=== PATIENT | male | born 1965 | race Asian ===

== ENCOUNTER 2019-05-15 09:51 | Inpatient (IN) | payer OTHER ==
[2019-05-15 10:20] VITALS: BMI 23.4
--- NOTE | 2019-05-15 11:18 | HP ---
CIWA Score Nausea/Vomitin Muscle Tremors: 2 Anxiety: 3 Agitation: 3 Paroxysmal Sweats: No Perspiration Orientation: 0-Oriented Tacttile Disturbances: 1-Very Mild Itch/Numbness Auditory Disturbances: 0-None Visual Disturbances: 0-None Headache: 2-Mild CIWA-Ar Total Score: 13 - Admission Criteria OASAS Guidelines: Admission for Medically Managed Detox: Requires at least one of the followin. CIWA greater than 12 2. Seizures within the past 24 hours 3. Delirium tremens within the past 24 hours 4. Hallucinations within the past 24 hours 5. Acute intervention needed for co occurring medical disorder 6. Acute intervention needed for co occurring psychiatric disorder 7. Severe withdrawal that cannot be handled at a lower level of care (continued vomiting, continued diarrhea, abnormal vital signs) requiring intravenous medication and/or fluids 8. Admitting History and Physical - Admission Chief Complaint: i need help to stop drinking alcohol History of Present Illness: this 53 years old male with alcohol dependence seeking detox,withdrawal symptom, first time in this facility last detox in 10/10 ,did not recall the facility lactose intolerance weight loss nicotine dependence depression,non compliance chronic low back pain l1 to l5 fx of right wrist with deformity in 2014 longest sobriety 1 year plan for rehab after detox History Source: Patient Limitations to Obtaining History: No Limitations - Past Medical History Cardiovascular: Yes: Other (hypercholesterol) Gastrointestinal: Yes: GERD Musculoskeletal: Yes: Chronic low back pain, Other (herniated disc l1 to l5) Additional Past Medical History: fx of right wrist in 2014 with deformity - Smoking History Smoking history: Current every day smoker Have you smoked in the past 12 months: Yes Aproximately how many cigarettes per day: 20 - Alcohol/Substance Use Hx Alcohol Use: Yes - Social History Usual Living Arrangement: Yes: Other (homeless) ADL: Support Services 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 unemployed,deformity of right wrist,chronic low pack,nicotine dependence Admission ROS [facility] - HPI Chief Complaint: i need help to stop drinking alcohol Allergies/Adverse Reactions: Allergies Allergy/AdvReac Type Severity Reaction Status Date / Time lactose Allergy Verified 05/15/19 10:28 History of Present Illness: this 53 years old male with alcohol dependence,seeking detox,withdrawal symptom last detox 2018 unknown facility chronic low back pain herniated lumbar disc deformity of right wrist ,post fx in 2014 homeless depression longest sobriety 1 year plan for rehab after detox weight loss - Ebola screening Have you traveled outside of the country in the last 21 days: No (N) Have you had contact with anyone from an Ebola affected area: No Do you have a fever: No - Review of Systems Constitutional: Loss of Appetite, Malaise, Night Sweats, Changes in sleep, Weakness, Unintentional Wgt. Loss EENT: reports: Nose Congestion Respiratory: reports: No Symptoms reported Cardiac: reports: No Symptoms Reported GI: reports: Nausea, Poor Appetite, Abdominal cramping : reports: No Symptoms Reported Musculoskeletal: reports: Back Pain, Muscle Pain, Other (chronic low back pain) Integumentary: reports: Dryness Neuro: reports: Headache, Tremors Endocrine: reports: No Symptoms Reported Hematology: reports: No Symptoms Reported Psychiatric: reports: No Sypmtoms Reported, Judgement Intact, Mood/Affect Appropiate, Orientated x3, Depressed Patient History - Patient Medical History Hx Anemia: Yes (no med) Hx Asthma: No Hx Chronic Obstructive Pulmonary Disease (COPD): No Hx Cancer: No Hx Cardiac Disorders: No Hx Congestive Heart Failure: No Hx Hypertension: No Hx Hypercholesterolemia: No HX Cerebrovascular Accident: No Hx Seizures: No Hx Dementia: No Hx Diabetes: No Hx Gastrointestinal Disorders: Yes (gerd) Hx Liver Disease: No Hx Genitourinary Disorders: No Hx Sexually Transmitted Disorders: No Hx Renal Disease (ESRD): No Hx Thyroid Disease: No Hx Human Immunodeficiency Virus (HIV): No (last 2018) Hx Hepatitis C: No Hx Depression: Yes (no med) Hx Suicide Attempt: No Hx Bipolar Disorder: No Hx Schizophrenia: No Other Medical History: no suicidal,no homicidal - Patient Surgical History Past Surgical History: No - PPD History Previous Implant?: Yes Documented Results: Positive w/o proof Implanted On Prior [facility] Admission?: No PPD to be Administered?: No - Smoking Cessation Smoking history: Current every day smoker Have you smoked in the past 12 months: Yes Aproximately how many cigarettes per day: 20 Hx Chewing Tobacco Use: No Initiated information on smoking cessation: Yes 'Breaking Loose' booklet given: 05/15/19 - Substance & Tx. History Hx Alcohol Use: Yes Hx Substance Use: No Substance Use Type: Alcohol Hx Substance Use Treatment: Yes (2018 unknown facility) - Substances abused Alcohol Substance route: Oral Frequency: Daily Amount used: 1 liter of whiskey Age of first use: 34 Date of last use: 05/14/19 Admission Physical Exam [facility] - Vital Signs Vital Signs: Vital Signs - 24 hr 05/15/19 05/15/19 10:08 10:57 Temperature 97.8 F 97.8 F Pulse Rate 83 83 Respiratory 20 20 Rate Blood Pressure 116/67 116/67 - Physical General Appearance: Yes: Moderate Distress, Tremorous, Irritable, Sweating, Anxious HEENTM: Yes: Normal ENT Inspection, FRANCO, Pharynx Normal Respiratory: Yes: Lungs Clear, Normal Breath Sounds, No Respiratory Distress Neck: Yes: Within Normal Limits, Supple, Trachea in good position Breast: Yes: Within Normal Limits Cardiology: Yes: Within Normal Limits, Regular Rate, S1, S2 Abdominal: Yes: Within Normal Limits, Normal Bowel Sounds, Non Tender, Flat, Soft Genitourinary: Yes: Within Normal Limits Back: Yes: Muscle Spasm (herniated lumbar disc l1 to l5) Musculoskeletal: Yes: Back pain, Muscle Pain Extremities: Yes: Tremors (deformity of right wrist) Neurological: Yes: electrical troubleshooter II-XII NML intact, Alert, Motor Strength 5/5 Integumentary: Yes: Dry Lymphatic: Yes: Within Normal Limits - Diagnostic (1) Alcohol dependence with uncomplicated withdrawal Current Visit: Yes Status: Acute (2) Syncope Current Visit: Yes Status: Acute (3) Chronic low back pain Current Visit: Yes Status: Acute (4) Deformity of right wrist Current Visit: Yes Status: Acute (5) Weight loss Current Visit: Yes Status: Acute (6) Depression Current Visit: Yes Status: Acute Cleared for Admission [facility] - Detox or Rehab [facility] Level of Care: Medically Managed Detox Regimen/Protocol: Librium Breathalyzer - Breathalyzer Breathalyzer: 0 Urine Drug Screen - Test Device Lot number: [id number] Expiration date: 12/22/20 - Control Is test valid?: Yes - Results Drug screen NEGATIVE: No Urine drug screen results: MOOKIE-Cocaine Inpatient Rehab Admission - Rehab Decision to Admit Inpatient rehab admission?: No
[2019-05-15] MEDS ORDERED: hydrOXYzine PAMOATE 25 MG CAPSULE (FP) PO PRN (11:46)
[2019-05-15] MEDS ORDERED: BISMUTH SUBSALICYLATE 524 MG/30 ML UD PO PRN (11:46)
[2019-05-15] MEDS ORDERED: MENTHOL/PHENOL 1 EACH UD MM PRN (11:46)
[2019-05-15] MEDS ORDERED: ACETAMINOPHEN 325 MG TABLET (FP) PO PRN ×2 (11:46)
[2019-05-15] MEDS ORDERED: MAGNESIUM CITRATE 300 ML BOTTLE PO PRN (11:46)
[2019-05-15] MEDS: NICOTINE 21 MG/24 HOURS TOPICAL PATCH TD SCH (13:08)
[2019-05-15] MEDS: chlordiazePOXIDE HCL 25 MG CAPSULE PO PRN (13:09)
[2019-05-15] MEDS: FAMOTIDINE 20 MG TABLET PO SCH (13:09)
[2019-05-15] MEDS: MAG HYDROX/AL HYDROX/SIMETH 30 ML UNIT-DOSE CUP PO PRN (17:07)
[2019-05-15] MEDS: IBUPROFEN 400 MG TABLET (FP) PO PRN (17:27)
[2019-05-15] MEDS: chlordiazePOXIDE HCL 25 MG CAPSULE PO SCH ×2 (17:28→22:15)
--- NOTE | 2019-05-15 18:43 | EKG ---
Test Reason : Blood Pressure : / mmHG Vent. Rate : 068 BPM Atrial Rate : 068 BPM P-R Int : 152 ms QRS Dur : 078 ms QT Int : 386 ms P-R-T Axes : 070 070 048 degrees QTc Int : 410 ms NORMAL SINUS RHYTHM POSSIBLE LEFT ATRIAL ENLARGEMENT BORDERLINE ECG NO PREVIOUS ECGS AVAILABLE Confirmed by ANTONIO MORALES MD ([id number]) on 05/15/2019 6:43:16 PM Referred By: OSCAR Confirmed By:ANTONIO MORALES MD
[2019-05-15] MEDS: NICOTINE POLACRILEX 2 MG GUM BUC PRN (20:50)
[2019-05-15] MEDS: THIAMINE HCL 100 MG TABLET (FP) PO SCH (22:15)
[2019-05-15] MEDS: MELATONIN 5 MG TABLETS PO PRN (22:16)
[2019-05-16] MEDS: chlordiazePOXIDE HCL 25 MG CAPSULE PO SCH ×4 (06:13→22:21)
[2019-05-16] MEDS: chlordiazePOXIDE HCL 25 MG CAPSULE PO PRN (06:41)
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
[2019-05-16] MEDS: hydrOXYzine PAMOATE 50 MG CAPSULE (FP) PO PRN ×3 (08:38→20:44)
--- NOTE | 2019-05-16 09:56 | PN ---
S CIWA - CIWA Score Nausea/Vomitin-Mild Nausea/No Vomiting Muscle Tremors: 3 Anxiety: 2 Agitation: 1-Slight > Activity Paroxysmal Sweats: 2 Orientation: 0-Oriented Tacttile Disturbances: 1-Very Mild Itch/Numbness Auditory Disturbances: 1-Very Mild Visual Disturbances: 0-None Headache: 1-Very Mild CIWA-Ar Total Score: 12 BHS Progress Note (SOAP) Subjective: 53 years old male admitted 05/15/19 for alcohol withdrawal sx management treating with librium detox regimen ate breakfast seen by psychiatrist feeling ok today discuss aftercare with staff Objective: 05/16/19 09:55 Vital Signs Temperature 97.5 F L 05/16/19 09:25 Pulse Rate 68 05/16/19 09:25 Respiratory Rate 18 05/16/19 09:25 Blood Pressure 106/66 05/16/19 09:25 O2 Sat by Pulse Oximetry (%) 05/16/19 09:55 lab pending Assessment: 05/16/19 09:55 alcohol withdrawal Plan: librium regimen
[2019-05-16 10:39] LABS: HEMATOCRIT 40.8 % (35.4-49); HEMOGLOBIN 13.3 GM/dL (11.7-16.9); MCH 25.8 pg (25.7-33.7); MCHC 32.5 g/dl (32.0-35.9); MEAN CELL VOLUME 79.3 fl (80-96); MEAN PLT VOLUME 9.1 fl (7.5-11.1); PLATELET COUNT 208 K/MM3 (134-434); RBC 5.14 M/mm3 (4.00-5.60); RDW 13.9 % (11.9-15.9); WHITE BLOOD COUNT 4.3 K/mm3 (4.0-10.0)
[2019-05-16] MEDS: PRENATAL VITAMINS W/ FOLIC ACID TABLET (FP) PO SCH (10:41)
[2019-05-16] MEDS: FENOFIBRIC ACID 45 MG CAP PO SCH (10:41)
[2019-05-16] MEDS: NICOTINE 21 MG/24 HOURS TOPICAL PATCH TD SCH (10:41)
[2019-05-16] MEDS: FAMOTIDINE 20 MG TABLET PO SCH (10:41)
[2019-05-16 10:43] LABS: ALBUMIN 3.7 g/dl (3.4-5.0); BILIRUBIN,TOTAL 0.3 mg/dL (0.2-1); BLOOD UREA NITROGEN 21.7 mg/dL (7-18); CALCIUM 9.3 mg/dL (8.5-10.1); POTASSIUM 4.9 mmol/L (3.5-5.1); TOT PROT 7.2 g/dl (6.4-8.2)
[2019-05-16] MEDS: NICOTINE POLACRILEX 2 MG GUM BUC PRN (10:43)
[2019-05-16] MEDS: MAG HYDROX/AL HYDROX/SIMETH 30 ML UNIT-DOSE CUP PO PRN ×2 (11:59→20:44)
[2019-05-16 16:25] LABS: URINE APPEARANCE CLEAR; URINE BILIRUBIN NEGATIVE (NEGATIVE); URINE COLOR YELLOW; URINE GLUCOSE (UA) NEGATIVE (NEGATIVE); URINE KETONE NEGATIVE (NEGATIVE); URINE LEUK ESTERASE NEGATIVE (NEGATIVE); URINE NITRITE NEGATIVE (NEGATIVE); URINE PROTEIN NEGATIVE (NEGATIVE); URINE UROBILINOGEN 0.2 mg/dL (0.2-1.0)
[2019-05-16] MEDS: IBUPROFEN 400 MG TABLET (FP) PO PRN (20:45)
[2019-05-16] MEDS: THIAMINE HCL 100 MG TABLET (FP) PO SCH (22:21)
[2019-05-16] MEDS: MELATONIN 5 MG TABLETS PO PRN (22:22)
[2019-05-17] MEDS: MAG HYDROX/AL HYDROX/SIMETH 30 ML UNIT-DOSE CUP PO PRN ×2 (02:01→14:43)
[2019-05-17] MEDS: hydrOXYzine PAMOATE 50 MG CAPSULE (FP) PO PRN ×3 (02:01→22:05)
[2019-05-17] MEDS: chlordiazePOXIDE HCL 25 MG CAPSULE PO SCH ×4 (05:19→22:04)
--- NOTE | 2019-05-17 09:58 | PN ---
S CIWA - CIWA Score Nausea/Vomitin-Mild Nausea/No Vomiting Muscle Tremors: 2 Anxiety: 2 Agitation: 2 Paroxysmal Sweats: 1-Minimal Palms Moist Orientation: 0-Oriented Tacttile Disturbances: 1-Very Mild Itch/Numbness Auditory Disturbances: 0-None Visual Disturbances: 0-None Headache: 0-None Present CIWA-Ar Total Score: 9 BHS Progress Note (SOAP) Subjective: 53 years old male admitted on 05/15/19 for alcohol withdrawal sx management treating with librium detox regimen c/o long history of eczema treated with hydrocortison cream order aveeno soap and hydrocortison cream Objective: 05/17/19 09:56 Vital Signs Temperature 97 F L 05/17/19 09:04 Pulse Rate 79 05/17/19 09:04 Respiratory Rate 18 05/17/19 09:04 Blood Pressure 112/61 05/17/19 09:04 O2 Sat by Pulse Oximetry (%) Laboratory Last Values WBC 4.3 K/mm3 (4.0-10.0) 05/16/19 07:45 RBC 5.14 M/mm3 (4.00-5.60) 05/16/19 07:45 Hgb 13.3 GM/dL (11.7-16.9) 05/16/19 07:45 Hct 40.8 % (35.4-49) 05/16/19 07:45 MCV 79.3 fl (80-96) L 05/16/19 07:45 MCH 25.8 pg (25.7-33.7) 05/16/19 07:45 MCHC 32.5 g/dl (32.0-35.9) 05/16/19 07:45 RDW 13.9 % (11.9-15.9) 05/16/19 07:45 Plt Count 208 K/MM3 (134-434) 05/16/19 07:45 MPV 9.1 fl (7.5-11.1) 05/16/19 07:45 Sodium 140 mmol/L (136-145) 05/16/19 07:45 Potassium 4.9 mmol/L (3.5-5.1) 05/16/19 07:45 Chloride 105 mmol/L (98-107) 05/16/19 07:45 Carbon Dioxide 30 mmol/L (21-32) 05/16/19 07:45 Anion Gap 5 MMOL/L (8-16) L 05/16/19 07:45 BUN 21.7 mg/dL (7-18) H 05/16/19 07:45 Creatinine 1.0 mg/dL (0.55-1.3) 05/16/19 07:45 Est GFR (CKD-EPI)AfAm 98.46 05/16/19 07:45 Est GFR (CKD-EPI)NonAf 84.95 05/16/19 07:45 Random Glucose 94 mg/dL (74-106) 05/16/19 07:45 Calcium 9.3 mg/dL (8.5-10.1) 05/16/19 07:45 Total Bilirubin 0.3 mg/dL (0.2-1) 05/16/19 07:45 AST 22 U/L (15-37) 05/16/19 07:45 ALT 47 U/L (13-61) 05/16/19 07:45 Alkaline Phosphatase 66 U/L (45-117) 05/16/19 07:45 Total Protein 7.2 g/dl (6.4-8.2) 05/16/19 07:45 Albumin 3.7 g/dl (3.4-5.0) 05/16/19 07:45 Triglycerides 243 mg/dL (0-150) H 05/16/19 07:45 Cholesterol 240 mg/dL (50-200) H 05/16/19 07:45 Total LDL Cholesterol 145 mg/dL (5-100) H 05/16/19 07:45 HDL Cholesterol 53 mg/dL (40-60) 05/16/19 07:45 Urine Color Yellow 05/16/19 15:57 Urine Appearance Clear 05/16/19 15:57 Urine pH 6.0 (5.0-8.0) 05/16/19 15:57 Ur Specific [place] 1.017 (1.010-1.035) 05/16/19 15:57 Urine Protein Negative (NEGATIVE) 05/16/19 15:57 Urine Glucose (UA) Negative (NEGATIVE) 05/16/19 15:57 Urine Ketones Negative (NEGATIVE) 05/16/19 15:57 Urine Blood Negative (NEGATIVE) 05/16/19 15:57 Urine Nitrite Negative (NEGATIVE) 05/16/19 15:57 Urine Bilirubin Negative (NEGATIVE) 05/16/19 15:57 Urine Urobilinogen 0.2 mg/dL (0.2-1.0) 05/16/19 15:57 Ur Leukocyte Esterase Negative (NEGATIVE) 05/16/19 15:57 RPR Titer Nonreactive (NONREACTIVE) 05/16/19 07:45 lab noted cholesterol elevation encourage the patient repeat cholesterol penal three months after fenofibrate 05/17/19 10:04 Assessment: 05/17/19 10:05 alcohol withdrawal Plan: librium regimen
[2019-05-17] MEDS: NICOTINE 21 MG/24 HOURS TOPICAL PATCH TD SCH (10:36)
[2019-05-17] MEDS: FENOFIBRIC ACID 45 MG CAP PO SCH (10:36)
[2019-05-17] MEDS: PRENATAL VITAMINS W/ FOLIC ACID TABLET (FP) PO SCH (10:36)
[2019-05-17] MEDS: FAMOTIDINE 20 MG TABLET PO SCH (10:36)
[2019-05-17] MEDS: NICOTINE POLACRILEX 2 MG GUM BUC PRN ×2 (10:36→21:22)
[2019-05-17] MEDS: HYDROCORTISONE 1% TOPICAL CREAM 30 GM TUBE TP SCH ×4 (11:32→22:04)
[2019-05-17] MEDS: COLLOIDAL OATMEAL 1 BAR EACH TP PRN (14:39)
[2019-05-17] MEDS: IBUPROFEN 400 MG TABLET (FP) PO PRN ×2 (16:56→22:56)
[2019-05-17] MEDS: LIDOCAINE 5% TOPICAL PATCH TP SCH (18:32)
[2019-05-17] MEDS: LIDOCAINE PATCH REMOVAL MC SCH (22:04)
[2019-05-17] MEDS: THIAMINE HCL 100 MG TABLET (FP) PO SCH (22:04)
[2019-05-18] MEDS ORDERED: chlordiazePOXIDE HCL 10 MG CAPSULE PO PRN
[2019-05-18] MEDS: MAG HYDROX/AL HYDROX/SIMETH 30 ML UNIT-DOSE CUP PO PRN ×3 (01:38→18:49)
[2019-05-18] MEDS: hydrOXYzine PAMOATE 50 MG CAPSULE (FP) PO PRN ×5 (01:39→22:48)
[2019-05-18] MEDS: chlordiazePOXIDE HCL 10 MG CAPSULE PO SCH ×4 (05:49→22:05)
[2019-05-18] MEDS: PRENATAL VITAMINS W/ FOLIC ACID TABLET (FP) PO SCH (09:11)
[2019-05-18] MEDS: FAMOTIDINE 20 MG TABLET PO SCH (09:11)
[2019-05-18] MEDS: HYDROCORTISONE 1% TOPICAL CREAM 30 GM TUBE TP SCH ×4 (09:11→21:58)
[2019-05-18] MEDS: FENOFIBRIC ACID 45 MG CAP PO SCH (09:11)
[2019-05-18] MEDS: LIDOCAINE 5% TOPICAL PATCH TP SCH (09:11)
[2019-05-18] MEDS: NICOTINE POLACRILEX 2 MG GUM BUC PRN (10:37)
[2019-05-18] MEDS: NICOTINE 21 MG/24 HOURS TOPICAL PATCH TD SCH (10:37)
--- NOTE | 2019-05-18 12:41 | PN ---
S CIWA - CIWA Score Nausea/Vomitin-No Nausea/No Vomiting Muscle Tremors: 2 Anxiety: 2 Agitation: 2 Paroxysmal Sweats: 1-Minimal Palms Moist Orientation: 0-Oriented Tacttile Disturbances: 0-None Auditory Disturbances: 0-None Visual Disturbances: 0-None Headache: 1-Very Mild CIWA-Ar Total Score: 8 S Progress Note (SOAP) Subjective: 53 years old male admitted on 05/15/19 for alcohol withdrawal sx management treating with librium detox regimen slept through the night ate breakfast and lunch social with peers in day room discuss aftercare with staff Objective: 05/18/19 12:39 Vital Signs Temperature 96.4 F L 05/18/19 09:21 Pulse Rate 78 05/18/19 09:21 Respiratory Rate 18 05/18/19 09:21 Blood Pressure 132/64 05/18/19 09:21 O2 Sat by Pulse Oximetry (%) Laboratory Last Values WBC 4.3 K/mm3 (4.0-10.0) 05/16/19 07:45 RBC 5.14 M/mm3 (4.00-5.60) 05/16/19 07:45 Hgb 13.3 GM/dL (11.7-16.9) 05/16/19 07:45 Hct 40.8 % (35.4-49) 05/16/19 07:45 MCV 79.3 fl (80-96) L 05/16/19 07:45 MCH 25.8 pg (25.7-33.7) 05/16/19 07:45 MCHC 32.5 g/dl (32.0-35.9) 05/16/19 07:45 RDW 13.9 % (11.9-15.9) 05/16/19 07:45 Plt Count 208 K/MM3 (134-434) 05/16/19 07:45 MPV 9.1 fl (7.5-11.1) 05/16/19 07:45 Sodium 140 mmol/L (136-145) 05/16/19 07:45 Potassium 4.9 mmol/L (3.5-5.1) 05/16/19 07:45 Chloride 105 mmol/L (98-107) 05/16/19 07:45 Carbon Dioxide 30 mmol/L (21-32) 05/16/19 07:45 Anion Gap 5 MMOL/L (8-16) L 05/16/19 07:45 BUN 21.7 mg/dL (7-18) H 05/16/19 07:45 Creatinine 1.0 mg/dL (0.55-1.3) 05/16/19 07:45 Est GFR (CKD-EPI)AfAm 98.46 05/16/19 07:45 Est GFR (CKD-EPI)NonAf 84.95 05/16/19 07:45 Random Glucose 94 mg/dL (74-106) 05/16/19 07:45 Calcium 9.3 mg/dL (8.5-10.1) 05/16/19 07:45 Total Bilirubin 0.3 mg/dL (0.2-1) 05/16/19 07:45 AST 22 U/L (15-37) 05/16/19 07:45 ALT 47 U/L (13-61) 05/16/19 07:45 Alkaline Phosphatase 66 U/L (45-117) 05/16/19 07:45 Total Protein 7.2 g/dl (6.4-8.2) 05/16/19 07:45 Albumin 3.7 g/dl (3.4-5.0) 05/16/19 07:45 Triglycerides 243 mg/dL (0-150) H 05/16/19 07:45 Cholesterol 240 mg/dL (50-200) H 05/16/19 07:45 Total LDL Cholesterol 145 mg/dL (5-100) H 05/16/19 07:45 HDL Cholesterol 53 mg/dL (40-60) 05/16/19 07:45 Urine Color Yellow 05/16/19 15:57 Urine Appearance Clear 05/16/19 15:57 Urine pH 6.0 (5.0-8.0) 05/16/19 15:57 Ur Specific [place] 1.017 (1.010-1.035) 05/16/19 15:57 Urine Protein Negative (NEGATIVE) 05/16/19 15:57 Urine Glucose (UA) Negative (NEGATIVE) 05/16/19 15:57 Urine Ketones Negative (NEGATIVE) 05/16/19 15:57 Urine Blood Negative (NEGATIVE) 05/16/19 15:57 Urine Nitrite Negative (NEGATIVE) 05/16/19 15:57 Urine Bilirubin Negative (NEGATIVE) 05/16/19 15:57 Urine Urobilinogen 0.2 mg/dL (0.2-1.0) 05/16/19 15:57 Ur Leukocyte Esterase Negative (NEGATIVE) 05/16/19 15:57 RPR Titer Nonreactive (NONREACTIVE) 05/16/19 07:45 lab noted Assessment: 05/18/19 12:40 alcohol withdrawal Plan: librium regimen
[2019-05-18] MEDS: IBUPROFEN 400 MG TABLET (FP) PO PRN (17:31)
[2019-05-18] MEDS: THIAMINE HCL 100 MG TABLET (FP) PO SCH (21:57)
[2019-05-18] MEDS: LIDOCAINE PATCH REMOVAL MC SCH (21:59)
[2019-05-18] MEDS: MELATONIN 5 MG TABLETS PO PRN (22:00)
[2019-05-18] MEDS: METHOCARBAMOL 500 MG TABLET PO PRN (22:03)
[2019-05-19] MEDS: MAG HYDROX/AL HYDROX/SIMETH 30 ML UNIT-DOSE CUP PO PRN (01:20)
[2019-05-19] MEDS: hydrOXYzine PAMOATE 50 MG CAPSULE (FP) PO PRN ×5 (03:24→23:09)
[2019-05-19] MEDS: chlordiazePOXIDE HCL 10 MG CAPSULE PO SCH ×2 (06:25→17:35)
[2019-05-19] MEDS: PRENATAL VITAMINS W/ FOLIC ACID TABLET (FP) PO SCH (10:49)
[2019-05-19] MEDS: FAMOTIDINE 20 MG TABLET PO SCH (10:49)
[2019-05-19] MEDS: HYDROCORTISONE 1% TOPICAL CREAM 30 GM TUBE TP SCH ×4 (10:49→21:47)
[2019-05-19] MEDS: NICOTINE 21 MG/24 HOURS TOPICAL PATCH TD SCH (10:50)
[2019-05-19] MEDS: NICOTINE POLACRILEX 2 MG GUM BUC PRN (10:50)
[2019-05-19] MEDS: FENOFIBRIC ACID 45 MG CAP PO SCH (10:52)
[2019-05-19] MEDS: LIDOCAINE 5% TOPICAL PATCH TP SCH (10:53)
--- NOTE | 2019-05-19 10:59 | PN ---
[facility] CIWA - CIWA Score Nausea/Vomitin-No Nausea/No Vomiting Muscle Tremors: 1-None Visible, but [place] Anxiety: 1-Mildly Anxious Agitation: 1-Slight > Activity Paroxysmal Sweats: 1-Minimal Palms Moist Orientation: 0-Oriented Tacttile Disturbances: 0-None Auditory Disturbances: 0-None Visual Disturbances: 0-None Headache: 0-None Present CIWA-Ar Total Score: 4 S Progress Note (SOAP) Subjective: 53 years old male admitted on 05/15/19 for alcohol withdrawal sx management treating with librium detox regimen calm with boundary discuss aftercare with staff Objective: 05/19/19 10:59 Vital Signs Temperature 96.7 F L 05/19/19 09:28 Pulse Rate 71 05/19/19 09:28 Respiratory Rate 18 05/19/19 09:28 Blood Pressure 121/74 05/19/19 09:28 O2 Sat by Pulse Oximetry (%) Laboratory Last Values WBC 4.3 K/mm3 (4.0-10.0) 05/16/19 07:45 RBC 5.14 M/mm3 (4.00-5.60) 05/16/19 07:45 Hgb 13.3 GM/dL (11.7-16.9) 05/16/19 07:45 Hct 40.8 % (35.4-49) 05/16/19 07:45 MCV 79.3 fl (80-96) L 05/16/19 07:45 MCH 25.8 pg (25.7-33.7) 05/16/19 07:45 MCHC 32.5 g/dl (32.0-35.9) 05/16/19 07:45 RDW 13.9 % (11.9-15.9) 05/16/19 07:45 Plt Count 208 K/MM3 (134-434) 05/16/19 07:45 MPV 9.1 fl (7.5-11.1) 05/16/19 07:45 Sodium 140 mmol/L (136-145) 05/16/19 07:45 Potassium 4.9 mmol/L (3.5-5.1) 05/16/19 07:45 Chloride 105 mmol/L (98-107) 05/16/19 07:45 Carbon Dioxide 30 mmol/L (21-32) 05/16/19 07:45 Anion Gap 5 MMOL/L (8-16) L 05/16/19 07:45 BUN 21.7 mg/dL (7-18) H 05/16/19 07:45 Creatinine 1.0 mg/dL (0.55-1.3) 05/16/19 07:45 Est GFR (CKD-EPI)AfAm 98.46 05/16/19 07:45 Est GFR (CKD-EPI)NonAf 84.95 05/16/19 07:45 Random Glucose 94 mg/dL (74-106) 05/16/19 07:45 Calcium 9.3 mg/dL (8.5-10.1) 05/16/19 07:45 Total Bilirubin 0.3 mg/dL (0.2-1) 05/16/19 07:45 AST 22 U/L (15-37) 05/16/19 07:45 ALT 47 U/L (13-61) 05/16/19 07:45 Alkaline Phosphatase 66 U/L (45-117) 05/16/19 07:45 Total Protein 7.2 g/dl (6.4-8.2) 05/16/19 07:45 Albumin 3.7 g/dl (3.4-5.0) 05/16/19 07:45 Triglycerides 243 mg/dL (0-150) H 05/16/19 07:45 Cholesterol 240 mg/dL (50-200) H 05/16/19 07:45 Total LDL Cholesterol 145 mg/dL (5-100) H 05/16/19 07:45 HDL Cholesterol 53 mg/dL (40-60) 05/16/19 07:45 Urine Color Yellow 05/16/19 15:57 Urine Appearance Clear 05/16/19 15:57 Urine pH 6.0 (5.0-8.0) 05/16/19 15:57 Ur Specific [place] 1.017 (1.010-1.035) 05/16/19 15:57 Urine Protein Negative (NEGATIVE) 05/16/19 15:57 Urine Glucose (UA) Negative (NEGATIVE) 05/16/19 15:57 Urine Ketones Negative (NEGATIVE) 05/16/19 15:57 Urine Blood Negative (NEGATIVE) 05/16/19 15:57 Urine Nitrite Negative (NEGATIVE) 05/16/19 15:57 Urine Bilirubin Negative (NEGATIVE) 05/16/19 15:57 Urine Urobilinogen 0.2 mg/dL (0.2-1.0) 05/16/19 15:57 Ur Leukocyte Esterase Negative (NEGATIVE) 05/16/19 15:57 RPR Titer Nonreactive (NONREACTIVE) 05/16/19 07:45 lab noted cholestrol elevation treated with fenofabric acid patient agrees to repeat cholesterol in 2 months 05/19/19 11:00 Assessment: 05/19/19 11:01 alcohol withdrawal Plan: librium regimen
[2019-05-19] MEDS: COLLOIDAL OATMEAL 1 BAR EACH TP PRN (13:27)
[2019-05-19] MEDS ORDERED: GABAPENTIN 300 MG CAPSULE (FP) PO ONE (15:04)
--- NOTE | 2019-05-19 15:28 | PN ---
Psychiatric Progress Note Vital Signs: Vital Signs Period Temp Pulse Resp BP Sys/Donald Pulse Ox Last 24 Hr 96.7 F-98.4 F 71-110 - 103-130/64-81 Date of Session: 05/19/19 Chief Complaint:: " I have anxiety." HPI: Patient admitted to for alcohol dependence. Consultation ordered due to reports of anxiety which is unresolved by vistaril. ROS: Patient is coherent, anxious, alert + oriented X3. Current Medications: Active Medications Generic Name Dose Route Start Last Admin Trade Name Freq PRN Reason Stop Dose Admin Acetaminophen 650 mg 05/15/19 11:46 Tylenol - PO Q6H PRN PAIN LEVEL 4 - 6 Acetaminophen 650 mg 05/15/19 11:46 Tylenol - PO Q6H PRN FEVER Al Hydroxide/Mg Hydroxide 30 ml 05/15/19 11:46 05/19/19 01:20 Mylanta Oral Suspension - PO 30 ml Q6H PRN Administration DYSPEPSIA Bismuth Subsalicylate 524 mg 05/15/19 11:46 05/17/19 04:59 Pepto-Bismol - PO 524 mg Q1H PRN Administration DIARRHEA Chlordiazepoxide HCl 10 mg 05/19/19 05:00 05/19/19 06:25 Librium - PO 05/19/19 17:01 Not Given Q12H ERIKA Chlordiazepoxide HCl 10 mg 05/20/19 05:00 Librium - PO 05/20/19 05:01 ONCE@0500 ONE Colloidal Oatmeal 1 applic 05/17/19 09:52 05/19/19 13:27 Aveeno Soap - TP 1 applic DAILY PRN Administration HYGEINE Eucalyptus/Menthol/Phenol/Sorbitol 1 each 05/15/19 11:46 Cepastat Lozenge - MM 05/21/19 11:46 Q4H PRN SORE THROAT Famotidine 20 mg 05/15/19 12:00 05/19/19 10:49 Pepcid - PO 20 mg DAILY ERIKA Administration Fenofibric Acid 45 mg 05/16/19 10:00 05/19/19 10:52 Trilipix - PO 45 mg DAILY ERIKA Administration Gabapentin 300 mg 05/19/19 22:00 Neurontin - PO TID ERIKA Hydrocortisone 1 applic 05/17/19 10:00 05/19/19 10:49 Hytone 1% Cream - TP Not Given QID ERIKA Hydroxyzine Pamoate 50 mg 05/16/19 08:26 05/19/19 14:59 Vistaril - PO 50 mg Q4H PRN Administration ANXIETY Ibuprofen 400 mg 05/15/19 11:46 05/18/19 17:31 Motrin - PO 400 mg Q6H PRN Administration PAIN LEVEL 1 - 3 Lidocaine 1 patch 05/17/19 19:00 05/19/19 10:53 Lidoderm Patch - TP 1 patch DAILY ERIKA Administration Magnesium Citrate 300 ml 05/15/19 11:46 Citroma - PO Q48H PRN CONSTIPATION Magnesium Hydroxide 30 ml 05/15/19 11:46 Milk Of Magnesia - PO PRN PRN CONSTIPATION Melatonin 5 mg 05/15/19 11:46 05/18/19 22:00 Melatonin PO 5 mg HS PRN Administration INSOMNIA Methocarbamol 500 mg 05/15/19 11:46 05/18/19 22:03 Robaxin - PO 05/21/19 11:46 500 mg Q6H PRN Administration MUSCLE SPASMS Miscellaneous 1 each 05/17/19 22:00 05/18/19 21:59 Lidoderm Patch Removal MC Not Given DAILY@2200 ERIKA Nicotine 21 mg 05/15/19 12:00 05/19/19 10:50 Nicoderm Patch - TD Not Given DAILY ERIKA Nicotine Polacrilex 2 mg 05/15/19 11:46 05/19/19 10:50 Nicorette Gum - BUC 2 mg Q2H PRN Administration NICOTINE REPLACEMENT RX Multivit/Folic Acid/Iron 1 tab 05/16/19 10:00 05/19/19 10:49 Vitamins (Sjr) - PO 1 tab DAILY ERIKA Administration Suvorexant 10 mg 05/19/19 22:00 Belsomra PO 05/22/19 21:59 HS PRN INSOMNIA Thiamine HCl 100 mg 05/15/19 22:00 05/18/19 21:57 Vitamin B1 - PO 100 mg HS ERIKA Administration Medication(s) Change(s): Yes. Current Side Effect: No Lab tests ordered: No Lab tests reviewed: Yes Provider note:: Patient seen by Dr. Caal. Dr. Caal's note read and appreciated. Patient is not currently under psychiatric care. Reports history of alcohol use disorder. He reports feeling overly anxious and difficulty sleeping. Patient ordered vistaril 50mg q4h for anxiety but states it has not been effective. Will add gabapentin 300mg TID + Belsomra 10mg HS PRN. Patient also educated on the importance of proper sleep hygiene and being able to utilize his coping skills to help manage his anxiety. Benefits and side effects discussed. Verbal consent given. Total face to face time:: 25 Mental Status Exam - Mental Status Exam Alert and Oriented to: Time, Place, Person Cognitive Function: Good Patient Appearance: Well Groomed Mood: Anxious Affect: Mood Congruent Patient Behavior: Appropriate, Cooperative Speech Pattern: Clear, Appropriate Voice Loudness: Normal Thought Process: Goal Oriented Thought Disorder: Not Present Hallucinations: Denies Suicidal Ideation: Denies Homicidal Ideation: Denies Insight/Judgement: Poor Sleep: Poorly Appetite: Fair Muscle strength/Tone: Normal Gait/Station: Normal Psychiatric Treatment Plan - Problem List (1) Alcohol dependence with uncomplicated withdrawal Current Visit: Yes (2) Alcohol-induced anxiety disorder Current Visit: Yes (3) Alcohol-induced sleep disorder Current Visit: Yes (4) Nicotine dependence Current Visit: Yes
[2019-05-19] MEDS: THIAMINE HCL 100 MG TABLET (FP) PO SCH (21:46)
[2019-05-19] MEDS: LIDOCAINE PATCH REMOVAL MC SCH (21:46)
[2019-05-19] MEDS: GABAPENTIN 300 MG CAPSULE (FP) PO SCH (21:47)
[2019-05-19] MEDS: SUVOREXANT 10 MG TABLET PO PRN (21:49)
[2019-05-19] MEDS: METHOCARBAMOL 500 MG TABLET PO PRN (23:09)
[2019-05-20] MEDS: hydrOXYzine PAMOATE 50 MG CAPSULE (FP) PO PRN ×5 (02:42→19:59)
[2019-05-20] MEDS: MAG HYDROX/AL HYDROX/SIMETH 30 ML UNIT-DOSE CUP PO PRN ×2 (02:43→15:42)
[2019-05-20] MEDS ORDERED: chlordiazePOXIDE HCL 10 MG CAPSULE PO ONE (05:00)
[2019-05-20] MEDS: GABAPENTIN 300 MG CAPSULE (FP) PO SCH ×3 (06:02→21:36)
[2019-05-20] MEDS: NICOTINE 21 MG/24 HOURS TOPICAL PATCH TD SCH (10:30)
[2019-05-20] MEDS: FENOFIBRIC ACID 45 MG CAP PO SCH (10:30)
[2019-05-20] MEDS: FAMOTIDINE 20 MG TABLET PO SCH (10:30)
[2019-05-20] MEDS: LIDOCAINE 5% TOPICAL PATCH TP SCH (10:30)
[2019-05-20] MEDS: PRENATAL VITAMINS W/ FOLIC ACID TABLET (FP) PO SCH (10:30)
[2019-05-20] MEDS: HYDROCORTISONE 1% TOPICAL CREAM 30 GM TUBE TP SCH ×4 (10:30→21:59)
[2019-05-20] MEDS: NICOTINE POLACRILEX 2 MG GUM BUC PRN (10:32)
--- NOTE | 2019-05-20 14:04 | PN ---
S CIWA - CIWA Score Nausea/Vomitin-No Nausea/No Vomiting Muscle Tremors: None Anxiety: 1-Mildly Anxious Agitation: 0-Normal Activity Paroxysmal Sweats: 1-Minimal Palms Moist Orientation: 0-Oriented Tacttile Disturbances: 0-None Auditory Disturbances: 0-None Visual Disturbances: 0-None Headache: 0-None Present CIWA-Ar Total Score: 2 [facility] Progress Note (SOAP) Subjective: c/o minimal withdrawal symptoms. Objective: 05/20/19 14:04 Vital Signs 05/20/19 05/20/19 06:18 09:11 Temperature 97.4 F L 95.8 F L Pulse Rate 80 98 H Respiratory 18 18 Rate Blood Pressure 105/60 120/76 Laboratory Last Values WBC 4.3 K/mm3 (4.0-10.0) 05/16/19 07:45 RBC 5.14 M/mm3 (4.00-5.60) 05/16/19 07:45 Hgb 13.3 GM/dL (11.7-16.9) 05/16/19 07:45 Hct 40.8 % (35.4-49) 05/16/19 07:45 MCV 79.3 fl (80-96) L 05/16/19 07:45 MCH 25.8 pg (25.7-33.7) 05/16/19 07:45 MCHC 32.5 g/dl (32.0-35.9) 05/16/19 07:45 RDW 13.9 % (11.9-15.9) 05/16/19 07:45 Plt Count 208 K/MM3 (134-434) 05/16/19 07:45 MPV 9.1 fl (7.5-11.1) 05/16/19 07:45 Sodium 140 mmol/L (136-145) 05/16/19 07:45 Potassium 4.9 mmol/L (3.5-5.1) 05/16/19 07:45 Chloride 105 mmol/L (98-107) 05/16/19 07:45 Carbon Dioxide 30 mmol/L (21-32) 05/16/19 07:45 Anion Gap 5 MMOL/L (8-16) L 05/16/19 07:45 BUN 21.7 mg/dL (7-18) H 05/16/19 07:45 Creatinine 1.0 mg/dL (0.55-1.3) 05/16/19 07:45 Est GFR (CKD-EPI)AfAm 98.46 05/16/19 07:45 Est GFR (CKD-EPI)NonAf 84.95 05/16/19 07:45 Random Glucose 94 mg/dL (74-106) 05/16/19 07:45 Calcium 9.3 mg/dL (8.5-10.1) 05/16/19 07:45 Total Bilirubin 0.3 mg/dL (0.2-1) 05/16/19 07:45 AST 22 U/L (15-37) 05/16/19 07:45 ALT 47 U/L (13-61) 05/16/19 07:45 Alkaline Phosphatase 66 U/L (45-117) 05/16/19 07:45 Total Protein 7.2 g/dl (6.4-8.2) 05/16/19 07:45 Albumin 3.7 g/dl (3.4-5.0) 05/16/19 07:45 Triglycerides 243 mg/dL (0-150) H 05/16/19 07:45 Cholesterol 240 mg/dL (50-200) H 05/16/19 07:45 Total LDL Cholesterol 145 mg/dL (5-100) H 05/16/19 07:45 HDL Cholesterol 53 mg/dL (40-60) 05/16/19 07:45 Urine Color Yellow 05/16/19 15:57 Urine Appearance Clear 05/16/19 15:57 Urine pH 6.0 (5.0-8.0) 05/16/19 15:57 Ur Specific [place] 1.017 (1.010-1.035) 05/16/19 15:57 Urine Protein Negative (NEGATIVE) 05/16/19 15:57 Urine Glucose (UA) Negative (NEGATIVE) 05/16/19 15:57 Urine Ketones Negative (NEGATIVE) 05/16/19 15:57 Urine Blood Negative (NEGATIVE) 05/16/19 15:57 Urine Nitrite Negative (NEGATIVE) 05/16/19 15:57 Urine Bilirubin Negative (NEGATIVE) 05/16/19 15:57 Urine Urobilinogen 0.2 mg/dL (0.2-1.0) 05/16/19 15:57 Ur Leukocyte Esterase Negative (NEGATIVE) 05/16/19 15:57 RPR Titer Nonreactive (NONREACTIVE) 05/16/19 07:45 Labs noted. Assessment: 05/20/19 14:05 AOX3, in no acute respiratory distress. Pt is medically cleared and [facility]. Plan: continue rehab management.
[2019-05-20] MEDS: MELATONIN 5 MG TABLETS PO PRN (21:36)
[2019-05-20] MEDS: THIAMINE HCL 100 MG TABLET (FP) PO SCH (21:36)
[2019-05-20] MEDS: LIDOCAINE PATCH REMOVAL MC SCH (21:36)
[2019-05-20] MEDS: SUVOREXANT 10 MG TABLET PO PRN (21:38)
[2019-05-20] MEDS: METHOCARBAMOL 500 MG TABLET PO PRN (21:38)
[2019-05-21] MEDS: MAG HYDROX/AL HYDROX/SIMETH 30 ML UNIT-DOSE CUP PO PRN ×3 (01:55→21:32)
[2019-05-21] MEDS: hydrOXYzine PAMOATE 50 MG CAPSULE (FP) PO PRN ×5 (01:55→20:07)
[2019-05-21] MEDS: GABAPENTIN 300 MG CAPSULE (FP) PO SCH ×3 (06:22→21:29)
[2019-05-21] MEDS: MAGNESIUM HYDROX 2400MG/30ML ORAL SUSPENSION 30 ML CUP PO PRN ×2 (07:15→14:21)
[2019-05-21] MEDS: PRENATAL VITAMINS W/ FOLIC ACID TABLET (FP) PO SCH (10:19)
[2019-05-21] MEDS: NICOTINE 21 MG/24 HOURS TOPICAL PATCH TD SCH (10:19)
[2019-05-21] MEDS: LIDOCAINE 5% TOPICAL PATCH TP SCH (10:19)
[2019-05-21] MEDS: FAMOTIDINE 20 MG TABLET PO SCH (10:19)
[2019-05-21] MEDS: HYDROCORTISONE 1% TOPICAL CREAM 30 GM TUBE TP SCH ×4 (10:20→21:30)
[2019-05-21] MEDS: METHOCARBAMOL 500 MG TABLET PO PRN (11:34)
[2019-05-21] MEDS ORDERED: HYDROCORTISONE 2.5% TOPICAL CREAM 30 GM TUBE PR PRN (11:49)
--- NOTE | 2019-05-21 11:49 | PN ---
[facility] Progress Note Note: complains of hemorrhoids- uses cream at home- will order
[2019-05-21] MEDS: FENOFIBRIC ACID 45 MG CAP PO SCH (14:18)
[2019-05-21] MEDS: THIAMINE HCL 100 MG TABLET (FP) PO SCH (21:29)
[2019-05-21] MEDS: MELATONIN 5 MG TABLETS PO PRN (21:29)
[2019-05-21] MEDS: LIDOCAINE PATCH REMOVAL MC SCH (21:29)
[2019-05-21] MEDS: SUVOREXANT 10 MG TABLET PO PRN (21:31)
[2019-05-22] MEDS: hydrOXYzine PAMOATE 50 MG CAPSULE (FP) PO PRN ×6 (00:17→22:45)
[2019-05-22] MEDS: GABAPENTIN 300 MG CAPSULE (FP) PO SCH ×3 (06:05→21:29)
[2019-05-22] MEDS: MAGNESIUM HYDROX 2400MG/30ML ORAL SUSPENSION 30 ML CUP PO PRN (06:05)
[2019-05-22] MEDS: FAMOTIDINE 20 MG TABLET PO SCH (10:02)
[2019-05-22] MEDS: FENOFIBRIC ACID 45 MG CAP PO SCH (10:02)
[2019-05-22] MEDS: PRENATAL VITAMINS W/ FOLIC ACID TABLET (FP) PO SCH (10:02)
[2019-05-22] MEDS: LIDOCAINE 5% TOPICAL PATCH TP SCH (10:02)
[2019-05-22] MEDS: NICOTINE 21 MG/24 HOURS TOPICAL PATCH TD SCH (10:02)
[2019-05-22] MEDS: HYDROCORTISONE 1% TOPICAL CREAM 30 GM TUBE TP SCH ×4 (10:03→21:29)
[2019-05-22] MEDS: NICOTINE POLACRILEX 2 MG GUM BUC PRN (10:04)
[2019-05-22] MEDS: MAG HYDROX/AL HYDROX/SIMETH 30 ML UNIT-DOSE CUP PO PRN ×2 (13:39→21:32)
--- NOTE | 2019-05-22 14:51 | PN ---
[facility] Progress Note Note: Psychiatric nurse practitioner note: Belsomra 10mg renewed X3 days. Verbal consent given.
[2019-05-22] MEDS: MELATONIN 5 MG TABLETS PO PRN (21:29)
[2019-05-22] MEDS: THIAMINE HCL 100 MG TABLET (FP) PO SCH (21:29)
[2019-05-22] MEDS: LIDOCAINE PATCH REMOVAL MC SCH (21:30)
[2019-05-22] MEDS: SUVOREXANT 10 MG TABLET PO PRN (21:31)
[2019-05-23] MEDS: hydrOXYzine PAMOATE 50 MG CAPSULE (FP) PO PRN ×5 (02:43→23:08)
[2019-05-23] MEDS: GABAPENTIN 300 MG CAPSULE (FP) PO SCH ×3 (06:31→21:24)
[2019-05-23] MEDS: MAG HYDROX/AL HYDROX/SIMETH 30 ML UNIT-DOSE CUP PO PRN ×2 (06:32→21:26)
[2019-05-23] MEDS: LIDOCAINE 5% TOPICAL PATCH TP SCH (10:29)
[2019-05-23] MEDS: FAMOTIDINE 20 MG TABLET PO SCH (10:30)
[2019-05-23] MEDS: PRENATAL VITAMINS W/ FOLIC ACID TABLET (FP) PO SCH (10:30)
[2019-05-23] MEDS: HYDROCORTISONE 1% TOPICAL CREAM 30 GM TUBE TP SCH ×4 (10:30→21:24)
[2019-05-23] MEDS: NICOTINE 21 MG/24 HOURS TOPICAL PATCH TD SCH (10:30)
[2019-05-23] MEDS: FENOFIBRIC ACID 45 MG CAP PO SCH (10:30)
[2019-05-23] MEDS: MAGNESIUM HYDROX 2400MG/30ML ORAL SUSPENSION 30 ML CUP PO PRN (10:33)
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
[2019-05-23] MEDS: METHOCARBAMOL 500 MG TABLET PO PRN (21:24)
[2019-05-23] MEDS: THIAMINE HCL 100 MG TABLET (FP) PO SCH (21:24)
[2019-05-23] MEDS: LIDOCAINE PATCH REMOVAL MC SCH (21:25)
[2019-05-23] MEDS: SUVOREXANT 10 MG TABLET PO PRN (21:27)
[2019-05-24] MEDS: GABAPENTIN 300 MG CAPSULE (FP) PO SCH ×3 (06:10→21:21)
[2019-05-24] MEDS: hydrOXYzine PAMOATE 50 MG CAPSULE (FP) PO PRN ×5 (06:10→23:42)
[2019-05-24] MEDS: MAG HYDROX/AL HYDROX/SIMETH 30 ML UNIT-DOSE CUP PO PRN ×2 (06:12→22:33)
[2019-05-24] MEDS: FAMOTIDINE 20 MG TABLET PO SCH (10:28)
[2019-05-24] MEDS: PRENATAL VITAMINS W/ FOLIC ACID TABLET (FP) PO SCH (10:28)
[2019-05-24] MEDS: FENOFIBRIC ACID 45 MG CAP PO SCH (10:28)
[2019-05-24] MEDS: LIDOCAINE 5% TOPICAL PATCH TP SCH (10:29)
[2019-05-24] MEDS: HYDROCORTISONE 1% TOPICAL CREAM 30 GM TUBE TP SCH ×4 (10:29→21:20)
[2019-05-24] MEDS: NICOTINE 21 MG/24 HOURS TOPICAL PATCH TD SCH (10:29)
[2019-05-24] MEDS: METHOCARBAMOL 500 MG TABLET PO PRN ×3 (10:30→21:23)
[2019-05-24] MEDS: THIAMINE HCL 100 MG TABLET (FP) PO SCH (21:21)
[2019-05-24] MEDS: LIDOCAINE PATCH REMOVAL MC SCH (21:21)
[2019-05-24] MEDS: SUVOREXANT 10 MG TABLET PO PRN (21:23)
[2019-05-25] MEDS: METHOCARBAMOL 500 MG TABLET PO PRN ×3 (06:24→22:25)
[2019-05-25] MEDS: hydrOXYzine PAMOATE 50 MG CAPSULE (FP) PO PRN ×4 (06:24→21:05)
[2019-05-25] MEDS: GABAPENTIN 300 MG CAPSULE (FP) PO SCH ×3 (06:24→21:05)
[2019-05-25] MEDS: MAG HYDROX/AL HYDROX/SIMETH 30 ML UNIT-DOSE CUP PO PRN ×2 (06:24→22:25)
--- NOTE | 2019-05-25 09:34 | HP ---
[facility] Rehab Assess/Revision - Admission History Admitted to Rehab from: [facility] Date of Admission to Rehab: 05/20/19 - Vital signs Vital Signs: Vital Signs Period Temp Pulse Resp BP Sys/Donald Pulse Ox Last 24 Hr 97.4 F 71 18-18 120/74 - Findings Detox History & Physical reviewed: Yes Concur with findings: Yes Comments/Additional Findings: PMHx:GERD, HLD,Anemia. Psych Hx:Depression(no meds-noncompliant with med per H/P). SxHx:Related to Right wrist fracture Inpatient Rehab Admission - Rehab Decision to Admit Inpatient rehab admission?: Yes - Initial Determination Are CD services needed?: Yes Free of communicable disease: Yes Not in need of hospitalization: Yes - Rehab Admission Criteria Previous failed treatment: Yes Poor recovery environment: Yes Comorbidities: Yes Lacks judgement: Yes Patient is meeting Inpatient Rehab admission criteria:: Yes
[2019-05-25] MEDS: NICOTINE 21 MG/24 HOURS TOPICAL PATCH TD SCH (10:12)
[2019-05-25] MEDS: FAMOTIDINE 20 MG TABLET PO SCH (10:12)
[2019-05-25] MEDS: PRENATAL VITAMINS W/ FOLIC ACID TABLET (FP) PO SCH (10:12)
[2019-05-25] MEDS: FENOFIBRIC ACID 45 MG CAP PO SCH (10:13)
[2019-05-25] MEDS: LIDOCAINE 5% TOPICAL PATCH TP SCH (10:13)
[2019-05-25] MEDS: HYDROCORTISONE 1% TOPICAL CREAM 30 GM TUBE TP SCH ×4 (10:14→21:05)
[2019-05-25] MEDS: MAGNESIUM HYDROX 2400MG/30ML ORAL SUSPENSION 30 ML CUP PO PRN (10:15)
[2019-05-25] MEDS: NICOTINE POLACRILEX 2 MG GUM BUC PRN (10:17)
[2019-05-25] MEDS: COLLOIDAL OATMEAL 1 BAR EACH TP PRN (11:08)
--- NOTE | 2019-05-25 13:34 | PN ---
[facility] Progress Note Note: Psychiatric nurse practitioner note: Belsomra 10mg renewed X3. days. Verbal consent given.
[2019-05-25] MEDS: LIDOCAINE PATCH REMOVAL MC SCH (21:05)
[2019-05-25] MEDS: THIAMINE HCL 100 MG TABLET (FP) PO SCH (21:05)
[2019-05-25] MEDS ORDERED: SUVOREXANT 10 MG TABLET PO PRN (22:00)
[2019-05-26] MEDS: hydrOXYzine PAMOATE 50 MG CAPSULE (FP) PO PRN ×4 (04:30→18:13)
[2019-05-26] MEDS: GABAPENTIN 300 MG CAPSULE (FP) PO SCH ×2 (06:04→14:11)
[2019-05-26] MEDS: MAG HYDROX/AL HYDROX/SIMETH 30 ML UNIT-DOSE CUP PO PRN (06:05)
[2019-05-26] MEDS: METHOCARBAMOL 500 MG TABLET PO PRN ×2 (06:05→14:11)
[2019-05-26 07:09] VITALS: BP 120/68; PULSE 83; TEMP 97.6
[2019-05-26] MEDS: HYDROCORTISONE 1% TOPICAL CREAM 30 GM TUBE TP SCH ×3 (10:32→17:15)
[2019-05-26] MEDS: NICOTINE 21 MG/24 HOURS TOPICAL PATCH TD SCH (10:32)
[2019-05-26] MEDS: FAMOTIDINE 20 MG TABLET PO SCH (10:32)
[2019-05-26] MEDS: LIDOCAINE 5% TOPICAL PATCH TP SCH (10:32)
[2019-05-26] MEDS: PRENATAL VITAMINS W/ FOLIC ACID TABLET (FP) PO SCH (10:32)
[2019-05-26] MEDS: FENOFIBRIC ACID 45 MG CAP PO SCH (10:33)
--- NOTE | 2019-05-26 19:43 | DS ---
[facility] Rehab Discharge Summary - [facility] Rehab Discharge Summary Admission Date: 05/15/19 Discharge Date: 05/26/19 - History Additional Comments: Patient is leaving against medical advice. He states that his son is coming in from [facility] and he has to meet his son at the airport. He reports that he informed the counselor that he will be leaving against medical advice today. Patient is stable at this time and his vital signs are stable. Risks and consequences of not completing his medical treatment reinforced. Patient verbalized understanding of instructions. He signed the AMA form and left. Pertinent Past History: Alcohol dependence, nicotine dependence, depression, dyslipidemia, GERD, anxiety and Bipolar 2. - Discharge Physical Exam Vital Signs: Vital Signs Temperature 97.6 F 05/26/19 07:12 Pulse Rate 83 05/26/19 07:12 Respiratory Rate 18 05/26/19 07:12 Blood Pressure 120/68 05/26/19 07:12 O2 Sat by Pulse Oximetry (%) Laboratory Last Values WBC 4.3 K/mm3 (4.0-10.0) 05/16/19 07:45 RBC 5.14 M/mm3 (4.00-5.60) 05/16/19 07:45 Hgb 13.3 GM/dL (11.7-16.9) 05/16/19 07:45 Hct 40.8 % (35.4-49) 05/16/19 07:45 MCV 79.3 fl (80-96) L 05/16/19 07:45 MCH 25.8 pg (25.7-33.7) 05/16/19 07:45 MCHC 32.5 g/dl (32.0-35.9) 05/16/19 07:45 RDW 13.9 % (11.9-15.9) 05/16/19 07:45 Plt Count 208 K/MM3 (134-434) 05/16/19 07:45 MPV 9.1 fl (7.5-11.1) 05/16/19 07:45 Sodium 140 mmol/L (136-145) 05/16/19 07:45 Potassium 4.9 mmol/L (3.5-5.1) 05/16/19 07:45 Chloride 105 mmol/L (98-107) 05/16/19 07:45 Carbon Dioxide 30 mmol/L (21-32) 05/16/19 07:45 Anion Gap 5 MMOL/L (8-16) L 05/16/19 07:45 BUN 21.7 mg/dL (7-18) H 05/16/19 07:45 Creatinine 1.0 mg/dL (0.55-1.3) 05/16/19 07:45 Est GFR (CKD-EPI)AfAm 98.46 05/16/19 07:45 Est GFR (CKD-EPI)NonAf 84.95 05/16/19 07:45 Random Glucose 94 mg/dL (74-106) 05/16/19 07:45 Calcium 9.3 mg/dL (8.5-10.1) 05/16/19 07:45 Total Bilirubin 0.3 mg/dL (0.2-1) 05/16/19 07:45 AST 22 U/L (15-37) 05/16/19 07:45 ALT 47 U/L (13-61) 05/16/19 07:45 Alkaline Phosphatase 66 U/L (45-117) 05/16/19 07:45 Total Protein 7.2 g/dl (6.4-8.2) 05/16/19 07:45 Albumin 3.7 g/dl (3.4-5.0) 05/16/19 07:45 Triglycerides 243 mg/dL (0-150) H 05/16/19 07:45 Cholesterol 240 mg/dL (50-200) H 05/16/19 07:45 Total LDL Cholesterol 145 mg/dL (5-100) H 05/16/19 07:45 HDL Cholesterol 53 mg/dL (40-60) 05/16/19 07:45 Urine Color Yellow 05/16/19 15:57 Urine Appearance Clear 05/16/19 15:57 Urine pH 6.0 (5.0-8.0) 05/16/19 15:57 Ur Specific [place] 1.017 (1.010-1.035) 05/16/19 15:57 Urine Protein Negative (NEGATIVE) 05/16/19 15:57 Urine Glucose (UA) Negative (NEGATIVE) 05/16/19 15:57 Urine Ketones Negative (NEGATIVE) 05/16/19 15:57 Urine Blood Negative (NEGATIVE) 05/16/19 15:57 Urine Nitrite Negative (NEGATIVE) 05/16/19 15:57 Urine Bilirubin Negative (NEGATIVE) 05/16/19 15:57 Urine Urobilinogen 0.2 mg/dL (0.2-1.0) 05/16/19 15:57 Ur Leukocyte Esterase Negative (NEGATIVE) 05/16/19 15:57 RPR Titer Nonreactive (NONREACTIVE) 05/16/19 07:45 Pertinent Admission Physical Exam Findings: Alcohol withdrawal symptoms - Medication Discharge Medications: Ambulatory Orders Fenofibrate Nanocrystallized [Fenofibrate] 48 mg PO DAILY 05/15/19 Ibuprofen [Motrin -] 600 mg PO PRN PRN 05/15/19 Multivitamins [Multivit ([facility] Formulary)] 1 tab PO DAILY 05/15/19 Omeprazole 40 mg PO DAILY 05/15/19 - Medication-Assisted Treatment (MAT) Medication-Assisted Treatment (MAT): No - Discharge Instructions Diet, activity, other medical instructions: Diet: Activity: Other medical instructions: - Diagnosis (1) Alcohol dependence Status: Chronic (2) Alcohol-induced anxiety disorder Status: Chronic (3) Alcohol-induced sleep disorder Status: Chronic (4) Depression Status: Chronic Qualifiers: Depression Type: unspecified Qualified Code(s): F32.9 - Major depressive disorder, single episode, unspecified (5) Bipolar II disorder Status: Chronic (6) Chronic low back pain Status: Chronic (7) Deformity of right wrist Status: Chronic (8) Dyslipidemia Status: Chronic (9) GERD (gastroesophageal reflux disease) Status: Chronic (10) Nicotine dependence Status: Chronic Qualifiers: Nicotine product type: cigarettes Substance use status: uncomplicated Qualified Code(s): F17.210 - Nicotine dependence, cigarettes, uncomplicated - Follow-up Referral Minutes to complete discharge: 30 - AMA Did Patient Leave Against Medical Advice: Yes
== END 2019-05-26 20:00 | disposition left against medical advice (07) | DRG 894 ==
LOC: YASAS 09:51 → Y3N 11:34 → Y5N 05-20 13:09
PROVIDERS: ADMIT Allergy & Immunology; ATTEND Neuromusculoskeletal Medicine & OMM
PROC: HZ2ZZZZ Detoxification Services for Substance Abuse Treatment (ICD-10-PCS; principal; 2019-05-15)
PROC: HZ42ZZZ Group Counseling for Substance Abuse Treatment, Cognitive-Behavioral (ICD-10-PCS; 2019-05-20)
DX: F10.230 Alcohol dependence with withdrawal, uncomplicated (principal); F31.81 Bipolar II disorder; F10.280 Alcohol dependence with alcohol-induced anxiety disorder; F10.282 Alcohol dependence with alcohol-induced sleep disorder; F17.210 Nicotine dependence, cigarettes, uncomplicated; K21.9 Gastro-esophageal reflux disease without esophagitis; E78.5 Hyperlipidemia, unspecified; M54.5 Low back pain; G89.29 Other chronic pain; M54.42 Lumbago with sciatica, left side; M54.41 Lumbago with sciatica, right side; K64.8 Other hemorrhoids; R63.4 Abnormal weight loss; Z62.810 Personal history of physical and sexual abuse in childhood; Z91.011 Allergy to milk products; Z59.0 Homelessness
CPT/HCPCS: 36415; 71046-TC-FY; 80053; 80061; 81003; 83721; 85027; 86593; 93005; 93010